=== PATIENT | male | born 2000 | race Caucasian/White ===

== ENCOUNTER 2025-01-12 16:18 | Emergency (ER) | payer SELFPAY ==
[~2025-01-12] VITALS: Ht 165.1 cm; Wt 77.0 kg
[2025-01-12 16:27] VITALS: O2SAT 98
[2025-01-12] MEDS: IBUPROFEN 400MG TABLET PO ONE (17:28)
[2025-01-12] MEDS ORDERED: IBUP-2028 MT (18:59)
[2025-01-12 19:12] VITALS: BP 129/78; PULSE 70; RESP 18; TEMP 36.8; O2SAT 100
== END 2025-01-12 19:11 | disposition home or self-care (01) ==
LOC: ER 16:18
DX: M79.631 Pain in right forearm (principal); M79.632 Pain in left forearm; M25.569 Pain in unspecified knee; R51.9 Headache, unspecified; M79.18 Myalgia, other site
CPT/HCPCS: 73090; 99284